=== PATIENT | male | born 1965 | race Caucasian/White ===

== ENCOUNTER 2019-02-12 15:27 | Emergency (ER) | payer OTHER ==
[2019-02-12] MEDS ORDERED: SODIUM CHLORIDE 0.9% 1000ML 1,000 ML IVS ONE (19:31)
[2019-02-12] MEDS ORDERED: SODIUM CHLORIDE 0.9% (FLUSH) 10 ML SYG IV PRN (19:31)
--- NOTE | 2019-02-12 19:32 | ED.PDOC ---
History of Present Illness - General Chief Complaint: GI Problem Time Seen by Provider: 02/12/19 19:31 Source: patient - History of Present Illness Initial Comments: 53 yo male who presents with cc of fevers and urinary urgency. Reports onset of sx's 3 days ago while at work - felt the sudden urge to urinate and several seconds later had urinary incontinence before he could make it to the bathroom. Reports several episodes intermittently since then. Also reports some deep burning/dull pains in the lower central pelvis with urination and constant mild- moderate dull pains at rest as well. Taking ibuprofen with some relief at home. Two days ago was seen in clinic and had UA done and was Rx'd Cipro for a UTI and reports compliance x2 days now. Last night he reports several episodes of NBNB emesis and cold chills/sweats through the night. Also had new onset fever with Tmax 103 F at home. Denies any diarrhea, abd pain, flank pain, chest pain, cough, dyspnea. No hx of sim sx's or hx of BPH to his knowledge. No penile discharge or testicular swelling or pain. Allergies/Adverse Reactions: Allergies Morphine Allergy (Verified 02/12/19 19:56) Home Medications: Ambulatory Orders Ondansetron Odt [Zofran ODT] 8 mg PO Q8H PRN 5 Days #10 tab 02/12/19 levoFLOXacin [Levaquin] 500 mg PO DAILY 14 Days #14 tab 02/12/19 Review of Systems - Review of Systems Review of Systems: 02/12/19 21:50 as per HPI All other Systems: Reviewed and Negative Family Medical History - Family History Mother Family History: Unknown Physical Exam - Physical Exam General Appearance: Alert, Comfortable, No apparent distress Eye Exam: bilateral normal Ears, Nose, Throat: hearing grossly normal, normal ENT inspection, normal pharynx Neck: non-tender, full range of motion, supple, normal inspection Respiratory: lungs clear, normal breath sounds, no respiratory distress Cardiovascular/Chest: normal peripheral pulses, no edema, no murmur Gastrointestinal/Abdominal: non tender, soft, no organomegaly Rectal Exam: normal rectal tone, other - Left sided moderate prostate ttp. 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 Prostate appears largely unremarkable, no evidence of focal abscesses. -Suspect UTI as likely diagnosis with question of acute prostatitis. Discussed pt is on adequate Abx regimen with Cipro. Will give printed Rx of Levaquin in case he continues to have acute sx's following Cipro ingestion and would like to try something else. Advised do not take both at the same time. -dc home in good condition Alvin Morgan MD Billing #[id number] - Results/Orders Results/Orders: 02/12/19 19:31 IV Care:Saline Lock per Protoc QSHIFT 02/12/19 21:46 Hold Metformin x 48Hrs [id number] Laboratory Results - last 24 hr 02/12/19 02/12/19 02/12/19 19:39 19:39 20:41 WBC 6.1 RBC 5.12 Hgb 14.4 Hct 42.1 MCV 82.2 MCH 28.2 MCHC 34.2 RDW 13.1 Plt Count 256 MPV 8.4 Absolute Neuts (auto) 4.30 Absolute Lymphs (auto) 1.10 Absolute Monos (auto) 0.70 Absolute Eos (auto) 0.00 Absolute Basos (auto) 0.00 Neutrophils % 70.8 Lymphocytes % 17.4 L Monocytes % 10.8 H Eosinophils % 0.3 L Basophils % 0.7 Sodium 135 Potassium 3.4 L Chloride 96 L Carbon Dioxide 27 Anion Gap 15.4 BUN 16 Creatinine 1.07 BUN/Creatinine Ratio 15.0 Random Glucose 121 H Serum Osmolality 272.5 L Calcium 9.8 Total Bilirubin 0.8 Direct Bilirubin 0.2 Indirect Bilirubin 0.6 AST 99 H ALT 58 Alkaline Phosphatase 101 Creatine Kinase 439 H* Serum Total Protein 7.5 Albumin 3.7 Lipase 29 Urine Color Dk yellow Urine Appearance Clear Urine pH 5.5 Ur Specific [place] 1.025 Urine Protein 30 Urine Glucose (UA) Negative Urine Ketones Negative Urine Blood Trace-lysed H Urine Nitrite Negative Urine Bilirubin Small H Urine Urobilinogen 1.0 Ur Leukocyte Esterase Negative Urine RBC 0-1 Urine WBC 1-3 Ur Epithelial Cells 1-3 Urine Bacteria 0 Urine Mucus Trace Departure - Departure Clinical Impression: UTI (urinary tract infection) Time of Disposition: 23:20 Disposition: Discharge to Home or Self Care Condition: Good Departure Forms: ED Discharge - Pt. Copy, ED Discharge - Work Release, Patient Portal Self Enrollment Instructions: Urinary Tract Infection, Adult (DC) Diet: resume usual diet Activity: increase activity as tolerated Referrals: [facility],MACKENZIE Marquez [Primary Care Provider] - 1-2 Weeks Prescriptions: levoFLOXacin [Levaquin] 500 mg PO DAILY 14 Days #14 tab Ondansetron Odt [Zofran ODT] 8 mg PO Q8H PRN 5 Days #10 tab PRN Reason: Nausea Home Medications: Ambulatory Orders Ondansetron Odt [Zofran ODT] 8 mg PO Q8H PRN 5 Days #10 tab 02/12/19 levoFLOXacin [Levaquin] 500 mg PO DAILY 14 Days #14 tab 02/12/19 Additional Instructions: You may change your antibiotic regimen to Levaquin if you feel like still having adverse effects from Cipro, although similar issues may still arise as they are similar in nature. DO NOT take both antibiotics together. Discard the Levaquin prescription if you do not use it. Take the Zofran as directed for nausea. Remain well-hydrated and gradually advance your diet & activity level as tolerated.
--- NOTE | 2019-02-12 22:58 | CT ---
EXAM: CT Abdomen and Pelvis With Intravenous Contrast CLINICAL HISTORY: The patient is 53 years old and is Male; fevers, chills, urinary sx's, prostate tenderness TECHNIQUE: Axial computed tomography images of the abdomen and pelvis with intravenous contrast. Sagittal and coronal reformatted images were created and reviewed. This CT exam was performed using one or more of the following dose reduction techniques: automated exposure control, adjustment of the mA and/or kV according to patient size, and/or use of iterative reconstruction technique. COMPARISON: No relevant prior studies available. FINDINGS: LUNG BASES: Mild bibasilar atelectasis. MEDIASTINUM: Small hiatal hernia. ABDOMEN: LIVER: Unremarkable. No obvious mass. GALLBLADDER AND BILE DUCTS: Unremarkable. No calcified stones. No significant biliary ductal dilatation. PANCREAS: Unremarkable. No ductal dilation. No obvious mass. SPLEEN: Unremarkable. No splenomegaly. ADRENALS: Unremarkable. No adrenal nodules or masses identified. KIDNEYS AND URETERS: Unremarkable. No solid mass. No hydronephrosis. STOMACH AND BOWEL: No evidence of bowel obstruction. No significant bowel wall thickening. Colonic diverticulosis is noted, without associated inflammatory changes to suggest diverticulitis. PELVIS: APPENDIX: The appendix is unremarkable. BLADDER: There is mild urinary bladder wall thickening. Mild stranding also visualized along the urinary bladder. Findings are suspicious for cystitis. No bladder stones. REPRODUCTIVE: Unremarkable as visualized. ABDOMEN and PELVIS: INTRAPERITONEAL SPACE: Unremarkable. No free air. No significant fluid collection. BONES/JOINTS: No acute fracture. No dislocation. SOFT TISSUES: No significant abnormalities in the superficial soft tissues. VASCULATURE: Scattered atherosclerotic calcifications. No aortic aneurysm. LYMPH NODES: No significant lymph node enlargement. IMPRESSION: 1. Mild urinary bladder wall thickening. Mild stranding also visualized along the urinary bladder. Findings are suspicious for cystitis. 2. Colonic diverticulosis without evidence of diverticulitis. Electronically signed by: Yasmeen Gutiérrez MD 02/12/2019 10:57 PM [facility]
[2019-02-12 23:45] VITALS: BP 127/84; TEMP 100.5; O2SAT 96
== END 2019-02-12 23:35 | disposition home or self-care (01) ==
LOC: ER 15:27
DX: N39.0 Urinary tract infection, site not specified (principal); Z88.5 Allergy status to narcotic agent
CPT/HCPCS: 74177; 80048; 80076; 81001; 82550; 83690; 85025; 87502; J7030